=== PATIENT | female | born 1995 | race American Indian/Alaskan Native ===

== ENCOUNTER 2017-09-24 21:55 | Emergency (ER) | payer OTHER ==
--- NOTE | 2017-09-24 22:39 | ED PDOC ---
"Arrival/HPI - General Chief Complaint: GI Problem Time Seen by Provider: 09/24/17 22:29 Historian: Patient - History of Present Illness Narrative History of Present Illness (Text): 09/24/17 22:29 22 y/o female, no significant pmh, nkda, c/o nausea/vomiting/diarrhea with abdominal pain x 3 days. Pt. stated that she had turkey sandwich about 3 days ago, been having periumbilical pain, associated with nausea/vomiting which resolved, no rash, no night sweat, no dizziness, no abdominal surgery, no other medical or psychological complaints. Past Medical History - Provider Review Nursing Documentation Reviewed: Yes - Psychiatric Hx Substance Use: No Family/Social History - Physician Review Nursing Documentation Reviewed: Yes Family/Social History: Unknown Family HX Smoking Status: n Hx Alcohol Use: No Hx Substance Use: No Allergies/Home Meds Allergies/Adverse Reactions: Allergies No Known Allergies Allergy (Verified 09/24/17 22:25) Review of Systems - Review of Systems Constitutional: absent: Fatigue, Fevers Eyes: absent: Vision Changes ENT: absent: Hearing Changes Respiratory: absent: SOB, Cough Cardiovascular: absent: Chest Pain Gastrointestinal: Abdominal Pain, Diarrhea, Nausea, Vomiting Musculoskeletal: absent: Arthralgias, Back Pain Skin: absent: Rash, Pruritis Neurological: absent: Headache, Dizziness Psychiatric: absent: Anxiety, Depression, Suicidal Ideation Physical Exam Vital Signs Temp Pulse Resp BP Pulse Ox 09/25/17 02:22 72 18 102/63 100 09/25/17 00:09 98.9 F 76 18 106/66 100 - Systems Exam Head: Present: Atraumatic, Normocephalic Pupils: Present: PERRL Extroacular Muscles: Present: EOMI Conjunctiva: Present: Normal Ears: Present: NORMAL TM, Normal Canal. No: Erythema Mouth: Present: Moist Mucous Membranes Neck: Present: Normal Range of Motion, Trachea Midline. No: MIDLINE TENDERNESS , Paraspinal Tenderness, Lymphadenopathy Respiratory/Chest: Present: Clear to Auscultation, Good Air Exchange. No: Respiratory Distress, Accessory Muscle Use Cardiovascular: Present: Regular Rate and Rhythm, Normal S1, S2. No: Murmurs Abdomen: Present: Tenderness (epigastric and periumbilical region. ), Normal Bowel Sounds. No: Distention, Peritoneal Signs, Rebound, Guarding Back: Present: Normal Inspection Upper Extremity: Present: Normal Inspection. No: Cyanosis, Edema Lower Extremity: Present: Normal Inspection. No: Edema Neurological: Present: GCS=15, Speech Normal, Motor Func Grossly Intact, Gait Normal, Memory Normal Skin: Present: Warm, Dry, Normal Color. No: Rashes Psychiatric: Present: Alert, Oriented x 3, Normal Insight, Normal Concentration Medical Decision Making ED Course and Treatment: 09/24/17 22:43 -labs/ua/lipase -CT abdomen and pelvis -IVF/pepcid -Observe and reassess 09/25/17 02:40 -Urine hcg is negative -Labs are non-significant. -UA show +UTI, IV rocephine ordered. -CT show: Nonspecific colonic wall thickening with small amount of stool and fluid likely due to underdistention versus nonspecific colitis. Possible trace amount of free pelvic fluid. Pt. will need cipro and flagyl, received rocephine so I ordered flagyl 500mg po. -I discussed about the cipro and flagyl side effects including prolong qt on ekg which can causes cardiac arrythmia and achilles tendon ruptures, adverse reaction and vomiting to the alcohol with interaction, pt. agreed and verbally to accept these side effects. -Discharge home with ciprofloxacin, flagyl, pepcid, drink more gatorade, non- dairy diet, BRAT diet, avoid strenuous exercise or activity, follow up with your own pmd and GI within 2 days, return to the Er for any new or worsening signs or symptoms. - Lab Interpretations Lab Results: 09/24/17 23:23 09/24/17 23:23 Lab Results 09/24/17 23:23: WBC 6.1, RBC 4.46, Hgb 11.9 L, Hct 37.3, MCV 83.6, MCH 26.7, MCHC 31.9, RDW 13.5, Plt Count 196, MPV 9.2, Gran % 48.8 L, Lymph % (Auto) 34.6 , Dent % (Auto) 15.9 H, Eos % (Auto) 0.5 L, Baso % (Auto) 0.2, Gran # 2.97, Lymph # (Auto) 2.1, Dent # (Auto) 1.0 H, Eos # (Auto) 0.0, Baso # (Auto) 0.01 09/24/17 23:23: Sodium 140, Potassium 3.7, Chloride 98, Carbon Dioxide 29, Anion Gap 16, BUN 15, Creatinine 0.7, Est GFR ( Amer) > 60, Est GFR (Non- Af Amer) > 60, Random Glucose 96, Calcium 10.3, Magnesium 2.1, Total Bilirubin 0.3, AST 33, ALT 31, Alkaline Phosphatase 59, Total Protein 8.2, Albumin 4.6, Globulin 3.6, Albumin/Globulin Ratio 1.3, Lipase 123 09/24/17 22:55: Urine Color Yellow, Urine Appearance Sl cloudy, Urine pH 6.0, Ur Specific [place] >= 1.030, Urine Protein 30 H, Urine Glucose (UA) Negative, Urine Ketones 40 H, Urine Blood Moderate H, Urine Nitrate Negative, Urine Bilirubin Small H, Urine Urobilinogen 0.2, Ur Leukocyte Esterase Small H, Urine RBC 1 - 3, Urine WBC 5 - 10, Ur Epithelial Cells 6 - 8, Urine Bacteria Mod - RAD Interpretation Radiology Orders: 09/24/17 22:40 ABD & PELVIS IV CONTRAST ONLY [CT] Stat FINDINGS: Artifacts: Overlying clothing artifacts. Lower thorax: No acute findings. ABDOMEN: Liver: Unremarkable. No mass. Gallbladder and bile ducts: Unremarkable. No ductal dilation. Pancreas: Unremarkable. No mass. No ductal dilation. Spleen: Unremarkable. No splenomegaly. Adrenals: Unremarkable. No mass. Kidneys and ureters: Unremarkable. No solid mass. No hydronephrosis. Stomach and bowel: Nonspecific colonic wall thickening with small amount of stool and fluid likely due to underdistention versus nonspecific colitis. There are nonspecific fluid filled small bowel loops. These findings can represent ileus versus enteritis versus slow transit versus peristalsis. Appendix: Normal appendix. JULI CARL | Final Radiology Report CONFIDENTIALITY STATEMENT This report is intended only for use by the referring physician, and only in accordance with law. If you received this in error, call [phone]. Page 2 of 2 PELVIS: Bladder: Partially decompressed bladder with bladder wall thickening. Correlation with urinalysis is recommended only if clinical cystitis is suspected. Reproductive: Bilateral ovarian follicles. Prominent endometrial stripe. ABDOMEN and PELVIS: Intraperitoneal space: Possible trace amount of free pelvic fluid. No free air. Bones/joints: No acute fracture. No dislocation. Soft tissues: Unremarkable. Vasculature: Unremarkable. No abdominal aortic aneurysm. Lymph nodes: Bilateral groin lymph nodes. Multiple subcentimeter mesenteric and ileocolic lymph nodes. Findings are nonspecific but may represent mesenteric adenitis. IMPRESSION: 1. Nonspecific colonic wall thickening with small amount of stool and fluid likely due to underdistention versus nonspecific colitis. 2. Possible trace amount of free pelvic fluid. Thank you for allowing us to participate in the care of your patient. Dictated and Authenticated by: Jozef Garcia MD 09/25/2017 1:58 AM Eastern Time ([place] & [place]) Mandrel Puller: Radiologist - Medication Orders Current Medication Orders: Sodium Chloride (Sodium Chloride 0.9%) 1,000 mls @ 1,000 mls/hr IV .Q1H WALDO Last Admin: 09/25/17 00:24 Dose: 1,000 mls/hr eMAR Start Stop Document 09/25/17 00:24 RG (Rec: 09/25/17 00:25 RG [id number]) Intravenous Solution Start Date 09/25/17 Start Time 00:25 Discontinued Medications Famotidine (Pepcid) 20 mg IVP STAT STA Stop: 09/24/17 22:41 Last Admin: 09/24/17 23:22 Dose: 20 mg IVP Administration Document 09/24/17 23:22 RG (Rec: 09/24/17 23:25 RG [id number]) Charges for Administration # of IVP Administrations 1 Sodium Chloride (Sodium Chloride 0.9%) 1,000 mls @ 100 mls/hr IV .Q10H WALDO Last Admin: 09/24/17 23:23 Dose: 100 mls/hr eMAR Start Stop Document 09/24/17 23:23 RG (Rec: 09/24/17 23:25 RG [id number]) Intravenous Solution Start Date 09/24/17 Start Time 23:23 Ceftriaxone Sodium (Rocephin 1 Gram Ivpb) 1 gm in 100 mls @ 200 mls/hr IVPB STAT STA PRN Reason: Protocol Stop: 09/25/17 00:32 Last Admin: 09/25/17 00:25 Dose: 200 mls/hr eMAR Start Stop Document 09/25/17 00:25 RG (Rec: 09/25/17 00:25 RG [id number]) Intravenous Solution Start Date 09/25/17 Start Time 00:25 - PA / SHOE CUTTER / Resident Statement MD/DO has reviewed & agrees with the documentation as recorded. Disposition/Present on Arrival - Present on Arrival Any Indicators Present on Arrival: No History of DVT/PE: No History of Uncontrolled Diabetes: No Urinary Catheter: No History of Decub. Ulcer: No History Surgical Site Infection Following: None - Disposition Have Diagnosis and Disposition been Completed?: Yes Diagnosis: UTI (urinary tract infection), Colitis Disposition: HOME/ ROUTINE Disposition Time: 02:40 Patient Plan: Discharge Patient Problems: Current Active Problems Problem Status Onset Colitis Acute UTI (urinary tract infection) Acute Condition: IMPROVED Additional Instructions: -Discharge home with ciprofloxacin, flagyl, pepcid, drink more gatorade, non- dairy diet, BRAT diet, avoid strenuous exercise or activity, follow up with your own pmd and GI within 2 days, return to the Er for any new or worsening signs or symptoms. Prescriptions: Ciprofloxacin/Ciprofloxa HCl [Ciprofloxacin] 500 mg PO BID #14 tab Famotidine [Pepcid] 20 mg PO BID #24 tab metroNIDAZOLE [Flagyl] 500 mg PO TID #21 tab Referrals: Pancho Claire, [Primary Care Provider] - Follow up with primary Surjit Lehay MD [Medical Doctor] - Follow up with primary Forms: WORK NOTE"
[2017-09-24] MEDS ORDERED: Sodium Chloride 0.9% 1,000 ML IV SCH ×2 (22:45→23:26)
[2017-09-24 23:15] LABS: URINE BILIRUBIN SMALL (NEGATIVE); URINE BLOOD MODERATE (NEGATIVE); URINE GLUCOSE (UA) NEGATIVE (NEGATIVE); URINE LEUKOCYTE ESTERASE SMALL Leu/uL (NEGATIVE); URINE NITRATE NEGATIVE (NEGATIVE); URINE PROTEIN 30 mg/dL (<30 mg/dL); URINE UROBILINOGEN 0.2 E.U./dL (<1 E.U./dL)
[2017-09-24 23:23] LABS: URINE APPEARANCE SL CLOUDY (CLEAR); URINE COLOR YELLOW (YELLOW)
[2017-09-24 23:29] LABS: URINE BACTERIA MOD (NEG)
[2017-09-24 23:38] LABS: BASO # 0.01 K/mm3 (0.0-2.0); BASO % 0.2 % (0.0-3.0); EOS % 0.5 % (1.5-5.0); GRAN # 2.97 (1.4-6.5); GRAN % 48.8 % (50.0-68.0); HEMOGLOBIN 11.9 g/dL (12.0-16.0); LYMPH # 2.1 (1.2-3.4); LYMPH % 34.6 % (22.0-35.0); MEAN CELL VOLUME 83.6 fl (80.0-105.0); MEAN CORPUSCULAR HEMOGLOBIN 26.7 pg (25.0-35.0); MEAN CORPUSCULAR HGB CONC 31.9 g/dl (31.0-37.0); MEAN PLATELET VOLUME 9.2 fl (7.0-11.0); MONO % 15.9 % (1.0-6.0); RBC 4.46 10^6/uL (3.5-6.1); RED CELL DISTRIBUTION WIDTH 13.5 % (11.5-14.5); WHITE BLOOD COUNT 6.1 10^3/ul (4.5-11.0)
[2017-09-24] MEDS ORDERED: Iohexol 350 MG/100 ML VIAL ONE (23:40)
[2017-09-25] MEDS ORDERED: cefTRIAXone 1 gm 1 GM/100 ML BAG IVPB STA (00:03)
[2017-09-25 00:05] LABS: ALB/GLOB RATIO 1.3 (1.1-1.8); ALBUMIN 4.6 g/dL (3.0-4.8); ALT/SGPT 31 U/L (7-56); AST/SGOT 33 U/L (14-36); BLOOD UREA NITROGEN 15 mg/dL (7-21); CALCIUM 10.3 mg/dL (8.4-10.5); GFR AFRICAN-AMERICAN > 60; GFR NON-AFRICAN AMERICAN > 60; LIPASE 123 U/L (23-300); MAGNESIUM 2.1 mg/dL (1.7-2.2)
[2017-09-25 00:09] VITALS: RESP 18; TEMP 98.9; O2SAT 100
--- NOTE | 2017-09-25 01:58 | CT ---
EXAM: CT Abdomen and Pelvis With Intravenous Contrast CLINICAL HISTORY: 22 years old, female; Pain; Abdominal pain; Periumbilical; Additional info: Periumbilical pain x 3 days, multiple diarrhea TECHNIQUE: Axial computed tomography images of the abdomen and pelvis with intravenous contrast. All CT scans at this facility use one or more dose reduction techniques, viz.: automated exposure control; ma/kV adjustment per patient size (including targeted exams where dose is matched to indication; i.e. head); or iterative reconstruction technique. 605 images are submitted. Coronal and sagittal reformatted images were created and reviewed. CONTRAST: 96 mL of OMNI 350 administered intravenously. COMPARISON: No relevant prior studies available. FINDINGS: Artifacts: Overlying clothing artifacts. Lower thorax: No acute findings. ABDOMEN: Liver: Unremarkable. No mass. Gallbladder and bile ducts: Unremarkable. No ductal dilation. Pancreas: Unremarkable. No mass. No ductal dilation. Spleen: Unremarkable. No splenomegaly. Adrenals: Unremarkable. No mass. Kidneys and ureters: Unremarkable. No solid mass. No hydronephrosis. Stomach and bowel: Nonspecific colonic wall thickening with small amount of stool and fluid likely due to underdistention versus nonspecific colitis. There are nonspecific fluid filled small bowel loops. These findings can represent ileus versus enteritis versus slow transit versus peristalsis. Appendix: Normal appendix. PELVIS: Bladder: Partially decompressed bladder with bladder wall thickening. Correlation with urinalysis is recommended only if clinical cystitis is suspected. Reproductive: Bilateral ovarian follicles. Prominent endometrial stripe. ABDOMEN and PELVIS: Intraperitoneal space: Possible trace amount of free pelvic fluid. No free air. Bones/joints: No acute fracture. No dislocation. Soft tissues: Unremarkable. Vasculature: Unremarkable. No abdominal aortic aneurysm. Lymph nodes: Bilateral groin lymph nodes. Multiple subcentimeter mesenteric and ileocolic lymph nodes. Findings are nonspecific but may represent mesenteric adenitis. IMPRESSION: 1. Nonspecific colonic wall thickening with small amount of stool and fluid likely due to underdistention versus nonspecific colitis. 2. Possible trace amount of free pelvic fluid.
[2017-09-25 02:23] VITALS: BP 102/63; PULSE 72
== END 2017-09-25 02:45 | disposition home or self-care (01) ==
LOC: ED 21:55
DX: N39.0 Urinary tract infection, site not specified (principal); K52.9 Noninfective gastroenteritis and colitis, unspecified
CPT/HCPCS: 74177; 80053; 81001; 83690; 83735; 85025; 87086; 96374; 99285; J0696; J7040; Q9967